=== PATIENT | female | born 1970 | race Caucasian/White ===

== ENCOUNTER 2018-03-28 21:40 | Emergency (ER) | payer BC, OTHER ==
[~2018-03-28] VITALS: Ht 160 cm; Wt 65.8 kg
[2018-03-28 22:02] LABS: URINE BILIRUBIN NEGATIVE (Negative); URINE BLOOD NEGATIVE (Negative); URINE CLARITY CLEAR; URINE COLOR YELLOW; URINE GLUCOSE-RANDOM* NEGATIVE (Negative); URINE KETONES NEGATIVE (Negative); URINE LEUKOCYTES-REFLEX NEGATIVE (Negative); URINE NITRITE-REFLEX NEGATIVE (Negative); URINE PROTEIN (DIPSTICK) NEGATIVE (Negative); URINE SPECIFIC GRAVITY <= 1.005 (1.005-1.035); URINE UROBILINOGEN 0.2 E.U./dl (0.2-1.0)
[2018-03-28 22:13] LABS: BASOPHILS 0.8 % (0.0-2.0); EOSINOPHILS 3.7 % (0.0-3.0); HEMATOCRIT 37.3 % (37.0-47.0); HEMOGLOBIN 12.8 gm/dL (12.0-15.0); LYMPHOCYTES 36.8 % (24.0-44.0); MCH 31.7 pg (26.0-34.0); MCHC 34.4 g/dL (28.0-37.0); MCV 92.3 fL (80.0-100.0); MONOCYTES 8.7 % (1.0-8.0); PLATELET COUNT 213 thou/uL (150-400); RBC 4.04 mil/uL (4.20-5.00); RDW 12.6 % (10.5-14.5); WBC 6.1 thou/uL (4.0-11.0)
[2018-03-28 22:21] LABS: CALCIUM 8.7 mg/dL (8.5-10.1); CREATININE 0.8 mg/dL (0.6-1.0); POTASSIUM 3.8 mmol/L (3.5-5.1)
[2018-03-28 22:27] LABS: ALBUMIN 3.7 g/dL (3.4-5.0); TOTAL BILIRUBIN 0.2 mg/dL (<0.1-1.0); TOTAL PROTEIN 6.9 g/dL (6.4-8.2)
[2018-03-28] MEDS ORDERED: PEPCID20 MG PO (22:57)
[2018-03-28] MEDS ORDERED: NORCO 5-325 TA1 EACH PO (22:57)
[2018-03-28 23:57] VITALS: BP 101/54
== END 2018-03-28 23:55 | disposition home or self-care (01) ==
LOC: ER 21:40
PROVIDERS: Emergency Medicine
DX: R10.11 Right upper quadrant pain (principal); F17.210 Nicotine dependence, cigarettes, uncomplicated